=== PATIENT | female | born 1970 | race Caucasian/White ===

== ENCOUNTER 2016-09-28 20:36 | Emergency (ER) | payer BC ==
[~2016-09-28] VITALS: Ht 172.7 cm; Wt 96.7 kg
[~2016-09-28 20:36] MED LIST: CYCL10TA6 PO; IBUP-1050 PO; TOPI50TA16 PO
[2016-09-28 20:41] VITALS: TEMP 36.7; Ht 172.7 cm; Wt 96.7 kg
[2016-09-28] MEDS ORDERED: KETOROLAC TROMETHAMINE 60 MG/2 ML VIAL IM STA (21:02)
--- NOTE | 2016-09-28 21:35 | EMERGENCY ROOM VISIT NOTE ---
History Report prepared by Talha: Missael Abdalla Under the Supervision of: Dr. Pascual Baugh D.O. First contact with patient: 20:52 Chief Complaint: CARDIAC ASSESSMENT Stated Complaint: CHEST PAIN LEFT History of Present Illness The patient is a 46 year old female who presents to the Emergency Room with complaints of intermittent, sharp, stabbing, left-sided abdomen pain beginning last night. She rates her current discomfort as an 8/10 in severity. The patient states that she went to [facility] and was referred here. She notes she had an X-Ray and EKG, all were normal. The patient reports that breathing worsens her discomfort. She notes that 10 days ago she had a D&C outpatient surgery for a uterine pollux. The patient reports that she was bed ridden for 2 days. She denies pulling or straining anything. The patient reports that she does not have a history of diabetes mellitus, hypertension, or heart disease. She states that she has is not on control, and she is not near her menstrual period. Source of History: patient Onset: last night Position: abdomen (left-sided) Symptom Intensity: 8/10 Quality: sharp, stabbing Timing: intermittent Modifying Factors (Worsening): breathing Review of Systems See HPI for pertinent positives & negatives. A total of 10 systems reviewed and were otherwise negative. Past Medical & Surgical Medical Problems: (1) Back pain (2) Chest pain (3) Chest wall pain (4) Herniated intervertebral disc of lumbar spine (5) Migraine (6) Osteoarthritis (7) Scoliosis Family History Patient reports no known family medical history. Social History Smoking Status: Never Smoker Marital Status: Housing Status: lives with family Occupation Status: other Current/Historical Medications Scheduled Cyclobenzaprine Hcl (Flexeril), 10 MG PO TID Ibuprofen (Advil), 200-600 MG PO Q4H Topiramate (Topamax), 50 MG PO HS Allergies Coded Allergies: Latex (Unverified Allergy, Intermediate, rash, 10/27/15) Penicillins (Verified Allergy, Unknown, 10/27/15) Alcohol (Verified Adverse Reaction, Unknown, RED WINE-MIGRAINES, 10/27/15) Physical Exam Vital Signs Date Time Temp Pulse Resp B/P (MAP) Pulse Ox O2 Delivery O2 Flow Rate FiO2 09/28/16 21:39 73 18 113/81 98 Room Air 09/28/16 21:03 75 09/28/16 20:41 36.7 97 20 116/81 94 Room Air Physical Exam CONSTITUTIONAL/VITAL SIGNS: Reviewed / noted above. GENERAL: Non-toxic in appearance. INTEGUMENTARY: Warm, dry, and Jette. HEAD: Normocephalic. EYES: without scleral icterus or trauma. ENT/OROPHARYNX: clear and moist. LYMPHADENOPATHY/NECK: Is supple without lymphadenopathy or meningismus. RESPIRATORY: Lungs clear and equal. CARDIOVASCULAR: Regular rate and rhythm. GI/ABDOMEN: Soft and nontender. No organomegaly or pulsatile mass. No rebound or guarding. Normal bowel sounds. EXTREMITIES: Warm and well perfused. BACK: No CVA tenderness. NEUROLOGICAL: Intact without focal deficits. PSYCHIATRIC: normal affect. MUSCULOSKELETAL: Normally developed with good muscle tone. Medical Decision & Procedures Laboratory Results Test 09/28/16 21:16 Bedside D-Dimer 93 ng/mlFEU (0-450) Laboratory results as stated above per my review. Medications Administered Medications (Trade) Dose Ordered Sig/Darlene Route Start Time Stop Time Status Last Admin Dose Admin Ketorolac Tromethamine (Toradol Inj) 60 mg NOW STAT IM 09/28/16 21:02 09/28/16 21:03 DC 09/28/16 21:16 60 MG ECG Indication: abdominal pain Rate (beats per minute): 73 Rhythm: normal sinus Findings: no acute ischemic change, no ectopy ED Course 2056: Previous medical records were reviewed. The patient was evaluated in room C02. A complete history and physical examination was performed. 2101: Ordered Toradol Inj 60mg IM 2136: On reevaluation, the patient is resting and in no distress. I discussed the results and findings with the patient. She verbalized agreement of the treatment plan. The patient was discharged home. Medical Decision The differential was considered includes acute myocardial infarction, acute coronary syndrome, myocarditis, pericarditis, pericardial effusions /tamponad, esophageal perforation, thoracic aortic dissection, pulmonary embolism, pneumonia, pneumothorax, pancreatitis, shingles, acute cholecystitis, perforated abdominal viscus. Medication Reconciliation: I attest that I have personally reviewed the patient' s current medication list. Blood pressure Screening: Patient was found to have normal blood pressure on screening and does not require follow-up. This is a 46-year-old female who presents from urgent care. The patient had a pleuritic left-sided chest pain. Details listed above. She had a 12-lead EKG that showed a normal sinus rhythm. X-ray at urgent care reportedly showed no acute disease. She was sent here to rule out blood clot. D-dimer here was negative. Patient was told results. She is felt to be stable for discharge. She was treated with Toradol IM. Impression Primary Impression: Chest wall pain Scribe Attestation The scribe's documentation has been prepared under my direction and personally reviewed by me in its entirety. I confirm that the note above accurately reflects all work, treatment, procedures, and medical decision making performed by me. Departure Information Dispostion Home / Self-Care Referrals Keyana Josue M.D. (PCP) [facility] Additional Instructions Take ibuprofen for the pain. Anticipate improvement of pain over the next 7 days. Return for worsening or new concerns.
[2016-09-28 21:39] VITALS: BP 113/81; PULSE 73; O2SAT 98
== END 2016-09-28 22:00 | disposition home or self-care (01) ==
LOC: C.EDB 20:36 → C.EDC 22:00
DX: R07.89 Other chest pain (principal); M19.90 Unspecified osteoarthritis, unspecified site; M41.9 Scoliosis, unspecified; Z79.899 Other long term (current) drug therapy

== ENCOUNTER 2017-06-23 13:52 | Emergency (ER) | payer BC, OTHER ==
[~2017-06-23] VITALS: Ht 172.7 cm; Wt 99.0 kg
[~2017-06-23 13:52] MED LIST changes: -IBUP-1050 PO; -TOPI50TA16 PO
[2017-06-23 13:54] VITALS: TEMP 36.9; Ht 172.7 cm; Wt 99.0 kg
[2017-06-23] MEDS ORDERED: PROCHLORPERAZINE 5 MG/ML 2 ML VIAL IV STA (14:40)
[2017-06-23] MEDS ORDERED: DEXAMETHASONE INJ 10 MG in SYRINGE 0 ML IV STA (14:40)
[2017-06-23] MEDS ORDERED: DiphenhydrAMINE HCL 50 MG/ML VIAL IV STA (14:40)
[2017-06-23] MEDS ORDERED: SODIUM CHLORIDE 0.9% 1000ML 1,000 ML IV STA (14:40)
[2017-06-23] MEDS ORDERED: KETOROLAC TROMETHAMINE 30 MG/ML VIAL IV STA (14:40)
[2017-06-23] MEDS ORDERED: TOPI50TA16 PO (15:04)
[2017-06-23] MEDS ORDERED: DEXAMETHASONE **PF** INJ 10 MG/ML VIAL ONE (15:09)
[2017-06-23] MEDS ORDERED: CLC/300 PO (15:36)
[2017-06-23 15:45] LABS: CALCIUM 8.9 mg/dl (8.5-10.1); CREATININE 0.85 mg/dl (0.60-1.20); POTASSIUM 3.7 mmol/L (3.5-5.1)
--- NOTE | 2017-06-23 15:47 | DIAGNOSTIC IMAGING REPORT ---
HEAD WITHOUT CONTRAST (CT) CLINICAL HISTORY: 47 years-old Female presenting with Evaluate for hemorrhage or pathology, extreme headache. TECHNIQUE: Multidetector CT imaging of the head was performed without the use of intravenous contrast. IV contrast: None. A dose lowering technique was used consistent with the principles of ALARA (as low as reasonably achievable). COMPARISON: 05/10/2008.. CT DOSE (mGy.cm): The estimated cumulative dose is 537.48 mGy.cm. FINDINGS: Special Ed Assistant topogram: Unremarkable. Ventricles and sulci normal in size. Brain parenchyma normal in appearance with preserved flores-white differentiation. No mass effect or midline shift. No hemorrhage or acute territorial infarct. No extra-axial fluid collection. Paranasal sinuses and mastoid air cells clear. Calvarium intact. IMPRESSION: 1. No acute intracranial abnormality. Electronically signed by: Burt Guardado M.D. 06/23/2017 3:45 PM Dictated Date/Time: 06/23/2017 3:42 PM
[2017-06-23 15:50] LABS: BASO % 0.5 %; BASO ABS # 0.05 K/uL (0-0.2); EOS % 4.6 %; EOS ABS # 0.42 K/uL (0-0.5); HEMATOCRIT 45.4 % (37-47); HEMOGLOBIN 15.9 g/dL (12.0-16.0); IG# 0.03 K/uL (0.00-0.02); LYMPH % 27.4 %; MEAN CELL VOLUME 90.6 fL (80-100); MEAN CORPUSCULAR HEMOGLOBIN 31.7 pg (25-34); MEAN PLATELET VOLUME 9.4 fL (7.4-10.4); MONO % 7.7 %; NEUT % 59.5 %; NEUT ABS # 5.44 K/uL (1.4-6.5); PLATELET COUNT 333 K/uL (130-400); RED CELL DISTRIBUTION WIDTH CV 12.1 % (11.5-14.5); RED CELL DISTRIBUTION WIDTH SD 40.1 fL (36.4-46.3); WHITE BLOOD COUNT 9.14 K/uL (4.8-10.8)
[2017-06-23] MEDS ORDERED: PRED20TA PO (16:23)
[2017-06-23 17:02] VITALS: BP 102/67; PULSE 73; O2SAT 97
[2017-06-23] MEDS ORDERED: IBUP-1050 PO (17:28)
--- NOTE | 2017-06-23 17:36 | EMERGENCY ROOM VISIT NOTE ---
History Report prepared by Talha: Alejandro Hamilton Under the Supervision of: Dr. Ayo Carr M.D. First contact with patient: 14:34 Chief Complaint: HEADACHE Stated Complaint: EXTREME HEADACHE History of Present Illness The patient is a 47 year old female who presents to the Emergency Room with complaints of constant headache beginning one week ago. The patient also complains of photophobia and nausea. She has a history of migraines, and states that her current headache feels different. She is on Topamax for her migraines. The patient had left periorbital cellulitis last week for which she was started on Clindamycin. Her cellulitis appeared to clear up after a few days. She rates her current pain as a 8/10 in severity. She localizes the pain to behind her left eye and in the top of her head. The patient denies any recent trauma. She also complains of stiffness of the left side of her neck. She denies cough. The patient notes that she has had three brain lesions by MRI with her neurologist a few years ago, and was told this should not be a problem unless her migraines change. Source of History: patient Onset: One week ago Position: head (behind left eye, top of head) Symptom Intensity: 8/10 Timing: constant Associated Symptoms: + nausea, No fevers, No cough Note: The patient also complains of stiffness of the left side of her neck, and photophobia. Review of Systems See HPI for pertinent positives & negatives. A total of 10 systems reviewed and were otherwise negative. Past Medical & Surgical Medical Problems: (1) Back pain (2) Chest pain (3) Chest wall pain (4) Herniated intervertebral disc of lumbar spine (5) Migraine (6) Osteoarthritis (7) Scoliosis Family History Patient reports no known family medical history. Social History Smoking Status: Never Smoker Marital Status: Housing Status: lives with family Occupation Status: other Current/Historical Medications Scheduled Clindamycin HCl (Clindamycin HCl), 300 MG PO TID Prednisone (Prednisone), 0 PO DAILY Topiramate (Topamax), 50 MG PO HS Scheduled PRN Ibuprofen (Advil), 200-600 MG PO Q4H PRN for Pain Allergies Coded Allergies: Latex (Unverified Allergy, Intermediate, rash, 10/27/15) Penicillins (Verified Allergy, Unknown, 10/27/15) Alcohol (Verified Adverse Reaction, Unknown, RED WINE-MIGRAINES, 10/27/15) Physical Exam Vital Signs Date Time Temp Pulse Resp B/P (MAP) Pulse Ox O2 Delivery O2 Flow Rate FiO2 06/23/17 17:02 73 20 102/67 97 06/23/17 13:54 36.9 87 20 131/83 96 Room Air Physical Exam GENERAL: Patient is in mild distress secondary to pain. HEENT: No acute trauma, normocephalic atraumatic, mucous membranes moist, no nasal congestion, no scleral icterus. Pupils equal and reactive to light. NECK: No stridor, no adenopathy, no meningismus, trachea is midline. Left posterior lateral muscle tenderness with palpation. LUNGS: Clear to auscultation bilaterally, no wheeze, no rhonchi, breath sounds equal. HEART: Without murmurs gallops or rubs, regular rate and rhythm. ABDOMEN: Soft, nontender, bowel sounds positive, no hernias, no peritonitis. EXTREMITIES: No cyanosis or edema, full range of motion of all the joints without pain or difficulty, no signs for acute trauma. NEUROLOGIC: Oriented x 3, no acute motor or sensory deficits, no focal weakness. No cerebellar deficits. SKIN: No rash, no jaundice, no diaphoresis Medical Decision & Procedures ER Provider Diagnostic Interpretation: Radiology results as stated below per my review and radiologist interpretation: HEAD WITHOUT CONTRAST (CT) FINDINGS: Microbiology Laboratory Manager topogram: Unremarkable. Ventricles and sulci normal in size. Brain parenchyma normal in appearance with preserved flores-white differentiation. No mass effect or midline shift. No hemorrhage or acute territorial infarct. No extra-axial fluid collection. Paranasal sinuses and mastoid air cells clear. Calvarium intact. IMPRESSION: 1. No acute intracranial abnormality. Electronically signed by: Burt Guardado M.D. 06/23/2017 3:45 PM Laboratory Results 06/23/17 15:10 Red Blood Count 5.01, Mean Corpuscular Volume 90.6, Mean Corpuscular Hemoglobin 31.7, Mean Corpuscular Hemoglobin Concent 35.0, Mean Platelet Volume 9.4, Neutrophils (%) (Auto) 59.5, Lymphocytes (%) (Auto) 27.4, Monocytes (%) (Auto) 7.7, Eosinophils (%) (Auto) 4.6, Basophils (%) (Auto) 0.5, Neutrophils # (Auto) 5.44, Lymphocytes # (Auto) 2.50, Monocytes # (Auto) 0.70, Eosinophils # (Auto) 0.42, Basophils # (Auto) 0.05 06/23/17 15:10 Test 06/23/17 15:10 White Blood Count 9.14 K/uL (4.8-10.8) Red Blood Count 5.01 M/uL (4.2-5.4) Hemoglobin 15.9 g/dL (12.0-16.0) Hematocrit 45.4 % (37-47) Mean Corpuscular Volume 90.6 fL (80-100) Mean Corpuscular Hemoglobin 31.7 pg (25-34) Mean Corpuscular Hemoglobin Concent 35.0 g/dl (32-36) Platelet Count 333 K/uL (130-400) Mean Platelet Volume 9.4 fL (7.4-10.4) Neutrophils (%) (Auto) 59.5 % Lymphocytes (%) (Auto) 27.4 % Monocytes (%) (Auto) 7.7 % Eosinophils (%) (Auto) 4.6 % Basophils (%) (Auto) 0.5 % Neutrophils # (Auto) 5.44 K/uL (1.4-6.5) Lymphocytes # (Auto) 2.50 K/uL (1.2-3.4) Monocytes # (Auto) 0.70 K/uL (0.11-0.59) Eosinophils # (Auto) 0.42 K/uL (0-0.5) Basophils # (Auto) 0.05 K/uL (0-0.2) RDW Standard Deviation 40.1 fL (36.4-46.3) RDW Coefficient of Variation 12.1 % (11.5-14.5) Immature Granulocyte % (Auto) 0.3 % Immature Granulocyte # (Auto) 0.03 K/uL (0.00-0.02) Erythrocyte Sedimentation Rate 3 mm/hr (0-21) Anion Gap 5.0 mmol/L (3-11) Est Creatinine Clear Calc Drug Dose 102.8 ml/min Estimated GFR () 95.9 Estimated GFR (Non- 82.8 BUN/Creatinine Ratio 18.4 (10-20) Calcium Level 8.9 mg/dl (8.5-10.1) Laboratory results reviewed by me. Medications Administered Medications (Trade) Dose Ordered Sig/Darlene Route Start Time Stop Time Status Last Admin Dose Admin Sodium Chloride 1,000 ml @ 999 mls/hr Q1H1M STAT IV 06/23/17 14:40 06/23/17 15:40 DC 06/23/17 15:12 999 MLS/HR Ketorolac Tromethamine (Toradol Inj) 30 mg NOW STAT IV 06/23/17 14:40 06/23/17 14:44 DC 06/23/17 15:13 30 MG Diphenhydramine HCl (Benadryl Inj) 50 mg NOW STAT IV 06/23/17 14:40 06/23/17 14:44 DC 06/23/17 15:13 50 MG Prochlorperazine Edisylate (Compazine Inj) 10 mg NOW STAT IV 06/23/17 14:40 06/23/17 14:44 DC 06/23/17 15:13 10 MG Dexamethasone Sodium Phosphate (Dexamethasone Inj Pf) 10 mg STK-MED ONCE .ROUTE 06/23/17 15:09 06/23/17 15:10 DC 06/23/17 15:13 10 MG ED Course 1435: The patient was evaluated in room B5. A complete history and physical exam was performed. 1440: Ordered Dexamethasone Sodium Phosphate 10 mg/Syringe 2.5 mL @ 1 mL/min IV , Compazine Inj 10 mg IV, Benadryl Inj 50 mg IV, Toradol Inj 30 mg IV, Sodium Chloride 1000 ml @ 999 mls/hr IV. 1620: Reevaluated the patient. She has had complete resolution of her symptoms. Discussed results and discharge instructions: she verbalized understanding and agreement. The patient is ready for discharge. Medical Decision The patient is a 47 year old female who presents to the ED with complaints of headache. Differential diagnoses considered include sinusitis, migraine headache, dehydration, electrolyte imbalance, ICH, intracranial mass, UTI, and meningitis. There is no leukocytosis or concerning anemia. No significant electrolyte abnormality or kidney failure. Sedimentation rate is not elevated making ongoing infection/inflammation less likely. Urinalysis does not show infection. Brain CT shows no acute bleed or mass effect. On exam, there were no focal neurologic deficits. No findings of meningismus. The patient was not toxic or febrile. The patient received IV saline, IV Toradol, IV Compazine, IV Benadryl and IV Decadron. She feels markedly improved. I spoke with Dr. Carbajal of neurology. The headache was felt migrainous. An emergent MRI was not felt warranted. The patient will follow in the outpatient office. She was discharged on a taper of prednisone. Medication Reconcilliation Current Medication List: was personally reviewed by me Blood Pressure Screening Patient's blood pressure: Normal blood pressure Blood pressure disposition: Did not require urgent referral Consults Time Called: 1500 Consulting Physician: Dr. Carbajal - Neurology Returned Call: [phone] Discussed the patient's case. Dr. Carbajal does not feel that MRI is warranted at the moment unless the patient's head CT is abnormal. He recommends treating the patient as a migraine, and plan for MRI as an outpatient. Impression Primary Impression: Headache Scribe Attestation The scribe's documentation has been prepared under my direction and personally reviewed by me in its entirety. I confirm that the note above accurately reflects all work, treatment, procedures, and medical decision making performed by me. Departure Information Dispostion Home / Self-Care Prescriptions Prednisone (Prednisone) 20 Mg Tab 0 PO DAILY, #14 TAB 3 TABS DAILY FOR 2 DAYS, THEN 2 TABS DAILY FOR 2 DAYS, THEN 1 TAB DAILY FOR 2 DAYS, THEN 1/2 TAB DAILY FOR 2 DAYS. Prov: Ayo Carr M.D. 06/23/17 Referrals Keyana Josue M.D. (PCP) Forms HOME CARE DOCUMENTATION FORM, IMPORTANT VISIT INFORMATION Patient Instructions My [facility] Additional Instructions prednisone taper as directed rest fluids follow with neurology as an outpatient return if worsening
== END 2017-06-23 17:03 | disposition home or self-care (01) ==
LOC: C.EDB 13:53
DX: R51 Headache (principal); M19.90 Unspecified osteoarthritis, unspecified site; M41.9 Scoliosis, unspecified; Z79.899 Other long term (current) drug therapy; Z91.048 Other nonmedicinal substance allergy status